=== PATIENT | female | born 1960 | race American Indian/Alaskan Native ===

== ENCOUNTER 2016-08-03 08:43 | Emergency (ER) | payer OTHER ==
[2016-08-03 08:49] VITALS: BMI 35.5
[2016-08-03 08:50] VITALS: TEMP 98.2
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
[2016-08-03 10:48] VITALS: PULSE 56
[2016-08-03 11:00] VITALS: BP 117/72; RESP 18; O2SAT 100
== END 2016-08-03 11:00 | disposition left against medical advice (07) ==
LOC: ED 08:43
DX: S40.012A Contusion of left shoulder, initial encounter (principal); S16.1XXA Strain of muscle, fascia and tendon at neck level, initial encounter; V49.50XA Passenger injured in collision with unspecified motor vehicles in traffic accident, initial encounter; I10 Essential (primary) hypertension
CPT/HCPCS: 70450; 71020; 72100; 72125; 73030; 96372; 99284; J1885

== ENCOUNTER 2016-11-23 13:50 | Emergency (ER) | payer OTHER ==
[2016-11-23 13:56] VITALS: BMI 33.9
[2016-11-23 14:01] VITALS: BP 105/69; PULSE 62; RESP 18; TEMP 98.7; O2SAT 95
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
== END 2016-11-23 14:25 | disposition home or self-care (01) ==
LOC: ED 13:50
DX: H92.09 Otalgia, unspecified ear (principal); Z87.891 Personal history of nicotine dependence

== ENCOUNTER 2016-12-13 18:31 | Emergency (ER) | payer OTHER ==
[2016-12-13 18:41] VITALS: BMI 36.3
[2016-12-13 18:44] VITALS: BP 135/79; PULSE 72; RESP 18; TEMP 98.5; O2SAT 98
[2016-12-13 19:26] LABS: URINE BILIRUBIN NEGATIVE (NEGATIVE); URINE BLOOD NEGATIVE (NEGATIVE); URINE GLUCOSE (UA) NEGATIVE (NEGATIVE); URINE KETONE NEGATIVE (NEGATIVE); URINE LEUKOCYTE ESTERASE SMALL Leu/uL (NEGATIVE); URINE PROTEIN NEGATIVE mg/dL (<30 mg/dL)
[2016-12-13 19:27] LABS: URINE APPEARANCE CLEAR (CLEAR); URINE COLOR YELLOW (YELLOW)
[2016-12-13 19:36] LABS: URINE RBC NEGATIVE /hpf (0-2)
--- NOTE | 2016-12-13 19:55 | ED PDOC ---
Arrival/HPI - General Historian: Patient - General Chief Complaint: Female Genitourinary Time Seen by Provider: 12/13/16 18:34 - History of Present Illness Narrative History of Present Illness (Text): 12/13/16 19:44 This is a 56 year old female with PMHx HTN, overactive bladder, vertigo who presents with complaint of throat and ear pain as well as burning with urination. Patient recently came to the ED on 11/23/16 for throat and ear pain and was discharged on Augmentin BID for 7 days. Patient reports initial improvement, but symptoms have returned starting about 4 or 5 days ago. Patient is complaining of runny nose with post nasal drip and bringing up clear sputum. Patient reports improvement in symptoms with Mucinex. Patient has been experiencing intermittent sharp pain in the RLQ for about 4 or 5 days as well. This is also when she started getting the dysuria. Patient denies flank or suprapubic tenderness. Patient also complaining of chronic dizziness stemming from her long-standing history of vertigo. PMHx: HTN, Vertigo, Overactive Bladder PSHx: x1, tubal ligation Allergies: NKDA Social: Former smoker quit 4 years ago. 20-25 year smoker smoking 1/2 ppd. Occasional alcohol drinker. Denies drug use. PMD: Dr. Nava ([facility]) Past Medical History - Infectious Disease Hx of Infectious Diseases: None - Cardiac Hx Cardiac Disorders: Yes Hx Hypertension: Yes - Pulmonary Hx Respiratory Disorders: No Other/Comment: USEDTO SMOKE 1/2 PPD - Neurological Hx Neurological Disorder: Yes Hx Dizziness: Yes Hx Vertigo: Yes Other/Comment: NUMBNESS TO LEFT ARM AND LEG 3--16 - HEENT Hx HEENT Disorder: No - Renal Hx Renal Disorder: No - Endocrine/Metabolic Hx Endocrine Disorders: No - Hematological/Oncological Hx Blood Disorders: No - Integumentary Hx Dermatological Disorder: No - Musculoskeletal/Rheumatological Hx Musculoskeletal Disorders: No Hx Falls: No - Gastrointestinal Hx Gastrointestinal Disorders: No - Genitourinary/Gynecological Hx Genitourinary Disorders: Yes Other/Comment: overactive bladder - Psychiatric Hx Psychophysiologic Disorder: No Hx Substance Use: No Other/Comment: ETOH SOCIALLY, SMOKES 1/2 PPD - Surgical History Hx Section: Yes (x1) Hx Tubal Ligation: Yes Other/Comment: TUBAL LIGATION,C SECTION X 1 - Anesthesia Hx Anesthesia: Yes Hx Anesthesia Reactions: No Hx Malignant Hyperthermia: No - Suicidal Assessment Feels Threatened In Home Enviroment: No Family/Social History Family/Social History: Unknown Family HX Smoking Status: Former Smoker Hx Alcohol Use: Yes Hx Substance Use: No Allergies/Home Meds Allergies/Adverse Reactions: Allergies No Known Allergies Allergy (Verified 11/23/16 13:56) Home Medications: Home Meds Medication Instructions Recorded Confirmed Meclizine HCl 25 mg PO Q8 12/01/14 12/13/16 Oxybutynin Chloride [Oxybutynin 10 mg PO DAILY 12/01/14 12/13/16 Chloride ER] Clopidogrel [Plavix] 75 mg PO DAILY 10/25/15 12/13/16 Atorvastatin [Lipitor] 10 mg PO DAILY 11/23/16 12/13/16 diltiaZEM [Cardizem] 240 mg PO DAILY 11/23/16 12/13/16 hydroCHLOROthiazide [Hydrodiuril] 1 tab PO DAILY 12/13/16 12/13/16 Review of Systems - Review of Systems Constitutional: Normal Eyes: Normal ENT: Sore Throat, Rhinorrhea, Other (post nasal drip). absent: Hearing Changes Cardiovascular: Normal Gastrointestinal: Abdominal Pain (intermittent sharp pain RLQ) Genitourinary Female: Dysuria, Frequency Musculoskeletal: Normal Skin: Normal Neurological: Dizziness Endocrine: Normal Hemo/Lymphatic: Normal Psychiatric: Normal Physical Exam Temperature: Afebrile Blood Pressure: Normal Pulse: Regular Respiratory Rate: Normal Appearance: Positive for: Well-Appearing Pain Distress: None Mental Status: Positive for: Alert and Oriented X 3 - Systems Exam Head: Present: Atraumatic, Normocephalic Pupils: Present: PERRL Extroacular Muscles: Present: EOMI Conjunctiva: Present: Normal Ears: Present: Other (excess cerumen bilaterally) Mouth: Present: Moist Mucous Membranes Pharnyx: Present: Normal. No: ERYTHEMA, EXUDATE, TONSILS ENLARGED Nose (External): No: Atraumatic Nose (Internal): Present: Normal Inspection Respiratory/Chest: Present: Decreased Breath Sounds (poor inspiratory effort) Cardiovascular: Present: Regular Rate and Rhythm, Normal S1, S2. No: Murmurs Abdomen: Present: Tenderness (RLQ tenderness), Normal Bowel Sounds. No: Distention, Peritoneal Signs, Rebound, Guarding Back: No: CVA Tenderness Upper Extremity: Present: Normal Inspection. No: Edema Lower Extremity: Present: Normal Inspection. No: Edema, CALF TENDERNESS Neurological: Present: GCS=15, CN II-XII Intact, Speech Normal Skin: Present: Warm, Dry, Normal Color Psychiatric: Present: Alert, Oriented x 3 Medical Decision Making ED Course and Treatment: 12/13/16 20:02 UA, urine cultures, throat cultures, Macrobid 100 mg PO dose Plan for discharge on Macrobid 100 mg PO BID. 12/13/16 20:06 12/13/16 20:06 12/13/16 20:10 (Holden Murguia) Patient was seen by resident and then evaluated by me and we came up with plan together. Patient complaining of "clogged ears" "scratchy throat" and clear nasal discharge. Denies fever, chest pain, or shortness of breath. Lungs cta b /l and rapid strep negative. Symptoms consistent with uti. Also complaining of dysuria. Abdomen soft NT/ND and no flank tenderness. Denies vaginal bleeding, discharge, constipation, diarrhea, vomiting, or constipation. UA consistent wiht uti. Will dc on antibiotics. Patient was given detailed return instructions. 12/13/16 20:42 (Christie Foy) - Lab Interpretations Lab Results: Lab Results 12/13/16 18:54: Urine Color Yellow, Urine Appearance Clear, Urine pH 7.0, Ur Specific [place] 1.020, Urine Protein Negative, Urine Glucose (UA) Negative, Urine Ketones Negative, Urine Blood Negative, Urine Nitrate Negative, Urine Bilirubin Negative, Urine Urobilinogen 1.0 H, Ur Leukocyte Esterase Small H, Urine RBC Negative, Urine WBC 10 - 15, Ur Epithelial Cells 1 - 3 12/13/16 18:54: Grp A Beta Strep Ag Negative - Medication Orders Current Medication Orders: Discontinued Medications Ibuprofen (Motrin Tab) 600 mg PO STAT STA Stop: 12/13/16 19:55 Last Admin: 12/13/16 20:22 Dose: 600 mg Nitrofurantoin Macrocrystals (Macrobid) 100 mg PO STAT STA Stop: 12/13/16 20:06 Last Admin: 12/13/16 20:23 Dose: 100 mg Disposition/Present on Arrival - Present on Arrival Any Indicators Present on Arrival: No History of DVT/PE: No History of Uncontrolled Diabetes: No Urinary Catheter: No History of Decub. Ulcer: No History Surgical Site Infection Following: None - Disposition Have Diagnosis and Disposition been Completed?: Yes Disposition Time: 20:00 - Disposition Diagnosis: Upper respiratory infection, Urinary tract infection Disposition: HOME/ ROUTINE Condition: STABLE Discharge Instructions (ExitCare): Urinary Tract Infection in Women (ED), Upper Respiratory Infection (ED) Additional Instructions: Take full course of antibiotics. Return to ED if condition worsens. Follow-up with PMD within 2 days. Prescriptions: Nitrofurantoin Macrocrystals [Macrobid] 100 mg PO BID #10 cap Referrals: Jackson Nava DO [Primary Care Provider] - Follow up with primary Forms: [facility] (Armenian), WORK NOTE
[2016-12-13] MEDS ORDERED: Tmp-Smz 800 mg-160 mg DS Tab PO STA (20:02)
== END 2016-12-13 20:23 | disposition home or self-care (01) ==
LOC: ED 18:31
DX: J06.9 Acute upper respiratory infection, unspecified (principal); N39.0 Urinary tract infection, site not specified; Z87.891 Personal history of nicotine dependence

== ENCOUNTER 2018-04-06 11:37 | Emergency (ER) | payer MEDICAID ==
[2018-04-06 11:59] VITALS: RESP 18
[2018-04-06 12:00] VITALS: BMI 38.2
--- NOTE | 2018-04-06 13:21 | CT ---
Date of service: 04/06/2018 PROCEDURE: CT HEAD WITHOUT CONTRAST. HISTORY: dizziness/paresthesia COMPARISON: 04/21/2017 TECHNIQUE: Axial computed tomography images were obtained through the head/brain without intravenous contrast. Radiation dose: Total exam DLP = 900.4 mGy-cm. This CT exam was performed using one or more of the following dose reduction techniques: Automated exposure control, adjustment of the mA and/or kV according to patient size, and/or use of iterative reconstruction technique. FINDINGS: HEMORRHAGE: No intracranial hemorrhage. BRAIN: No mass effect or edema. No atrophy or chronic microvascular ischemic changes. VENTRICLES: Unremarkable. No hydrocephalus. CALVARIUM: Unremarkable. PARANASAL SINUSES: Unremarkable as visualized. No significant inflammatory changes. MASTOID AIR CELLS: Unremarkable as visualized. No inflammatory changes. OTHER FINDINGS: None. IMPRESSION: No acute intracranial findings
[2018-04-06 13:46] LABS: URINE BILIRUBIN NEGATIVE (NEGATIVE); URINE BLOOD NEGATIVE (NEGATIVE); URINE GLUCOSE (UA) NEGATIVE (NEGATIVE); URINE LEUKOCYTE ESTERASE TRACE Leu/uL (NEGATIVE); URINE PROTEIN NEGATIVE mg/dL (<30 mg/dL); URINE UROBILINOGEN 0.2 E.U./dL (<1 E.U./dL)
[2018-04-06 13:48] LABS: URINE APPEARANCE CLEAR (CLEAR); URINE COLOR YELLOW (YELLOW)
[2018-04-06 13:53] LABS: URINE EPITHELIAL CELLS 0 - 2 /hpf (0-5); URINE RBC NEGATIVE /hpf (0-2)
[2018-04-06] MEDS ORDERED: Sodium Chloride 0.9% 1,000 ML IV STA (13:53)
[2018-04-06 13:57] LABS: BASO # 0.02 K/mm3 (0.0-2.0); BASO % 0.4 % (0.0-3.0); EOS # 0.1 (0.0-0.7); EOS % 2.8 % (1.5-5.0); GRAN # 1.87 (1.4-6.5); GRAN % 39.9 % (50.0-68.0); HEMOGLOBIN 11.7 g/dL (12.0-16.0); LYMPH # 2.4 (1.2-3.4); LYMPH % 50.7 % (22.0-35.0); MEAN CELL VOLUME 85.3 fl (80.0-105.0); MEAN CORPUSCULAR HEMOGLOBIN 27.7 pg (25.0-35.0); MEAN CORPUSCULAR HGB CONC 32.5 g/dl (31.0-37.0); MEAN PLATELET VOLUME 8.5 fl (7.0-11.0); MONO # 0.3 (0.1-0.6); MONO % 6.2 % (1.0-6.0); RBC 4.22 10^6/uL (3.5-6.1); RED CELL DISTRIBUTION WIDTH 14.9 % (11.5-14.5); WHITE BLOOD COUNT 4.7 10^3/uL (4.5-11.0)
[2018-04-06 14:01] LABS: BARBITURATES, UR NEGATIVE (NEGATIVE); BENZODIAZEPINES, UR NEGATIVE (NEGATIVE); OPIATES, UR NEGATIVE (NEGATIVE); PHENCYCLIDINE, UR NEGATIVE (NEGATIVE)
[2018-04-06 14:06] LABS: INR 1.14; PARTIAL THROMBOPLASTIN TIME 29.1 Seconds (25.1-36.5); PROTHROMBIN TIME 13.2 SECONDS (9.4-12.5)
[2018-04-06 14:08] LABS: ALB/GLOB RATIO 1.2 (1.1-1.8); ALBUMIN 4.3 g/dL (3.0-4.8); ALT/SGPT 41 U/L (7-56); AST/SGOT 35 U/L (14-36); BLOOD UREA NITROGEN 11 mg/dL (7-21); CALCIUM 9.5 mg/dL (8.4-10.5); GFR NON-AFRICAN AMERICAN > 60
[2018-04-06 14:15] VITALS: TEMP 97.7
[2018-04-06 14:19] LABS: TROPONIN I < 0.01 ng/mL
[2018-04-06 14:24] LABS: CK-MB 5.3 ng/mL (0.0-3.6)
[2018-04-06] MEDS: Potassium Chloride 20 mEq ER Tab PO STA ×2 (14:26→14:39)
[2018-04-06] MEDS ORDERED: Potassium Chloride 40 mEq/30 ml LIQ UD PO STA (14:49)
--- NOTE | 2018-04-06 15:00 | CARD ---
APPROVED REPORT Date of service: 04/06/2018 EKG Measurement Heart [id number] <Conclusion> Sinus bradycardia Nonspecific T wave abnormality
[2018-04-06 15:08] VITALS: BP 149/74; PULSE 62; O2SAT 100
--- NOTE | 2018-05-05 18:10 | ED PDOC ---
Arrival/HPI - General Chief Complaint: Dizziness/Lightheaded Historian: Patient - History of Present Illness Narrative History of Present Illness (Text): 05/05/18 18:06 57yo female with pmhx of hypertension, hyperlipdemia , Vertigo who present with complaint of dizziness, blurry vision, nausea and vomiting x 2days. She notes history of similar symptoms with her Vertigo, but it usually resolves with Meclizine. States she is in Meclizine at home and has been taking it without relieve. She denies chest pain, SOB, focal weakness, visual changes, ripping/tearing upper back pain, dysarthria, facial drooping, fever, chills, neck pain, any other complaint. Past Medical History - Provider Review Nursing Documentation Reviewed: Yes - Infectious Disease Hx of Infectious Diseases: None - Reproductive Menopause: Yes - Cardiac Hx Cardiac Disorders: Yes Hx Hypertension: Yes - Pulmonary Hx Respiratory Disorders: No - Neurological Hx Neurological Disorder: Yes Hx Dizziness: Yes - HEENT Hx HEENT Disorder: Yes Other/Comment: glasses - Renal Hx Renal Disorder: No - Endocrine/Metabolic Hx Endocrine Disorders: No - Hematological/Oncological Hx Blood Disorders: No - Integumentary Hx Dermatological Disorder: Yes - Musculoskeletal/Rheumatological Hx Musculoskeletal Disorders: No Hx Falls: No - Gastrointestinal Hx Gastrointestinal Disorders: No - Genitourinary/Gynecological Hx Genitourinary Disorders: No - Psychiatric Hx Psychophysiologic Disorder: No Hx Substance Use: No - Surgical History Hx Section: Yes - Anesthesia Hx Anesthesia: Yes Hx Anesthesia Reactions: No Hx Malignant Hyperthermia: No - Suicidal Assessment Feels Threatened In Home Enviroment: No Family/Social History - Physician Review Nursing Documentation Reviewed: Yes Family/Social History: Unknown Family HX Smoking Status: Never Smoked Hx Alcohol Use: Yes Hx Substance Use: No Allergies/Home Meds Allergies/Adverse Reactions: Allergies No Known Allergies Allergy (Verified 04/15/18 00:34) Home Medications: Home Meds Medication Instructions Recorded Confirmed Meclizine HCl 25 mg PO Q8 12/01/14 04/06/18 Clopidogrel [Plavix] 75 mg PO DAILY 10/25/15 04/06/18 Oxybutynin [Ditropan Tab] 10 mg PO DAILY 04/17/16 04/06/18 diltiaZEM [Cardizem] 240 mg PO DAILY 04/17/16 04/06/18 Atorvastatin [Lipitor] 20 mg PO HS 04/21/17 04/06/18 Hydrochlorothiazide [Microzide] 12.5 mg PO DAILY 04/21/17 04/06/18 Review of Systems - Physician Review All systems were reviewed & negative as marked: Yes - Review of Systems Constitutional: Normal Eyes: Normal ENT: Normal Respiratory: Normal Cardiovascular: Normal Gastrointestinal: Nausea, Vomiting Genitourinary Female: Normal Musculoskeletal: Normal Skin: Normal Neurological: Dizziness Endocrine: Normal Hemo/Lymphatic: Normal Psychiatric: Normal Physical Exam Vital Signs Reviewed: Yes Vital Signs Temp Pulse Resp BP Pulse Ox 04/06/18 15:07 62 18 149/74 100 04/06/18 14:14 97.7 F 64 18 119/61 99 04/06/18 11:58 97.8 F 63 18 113/62 99 Temperature: Afebrile Blood Pressure: Normal Pulse: Regular Respiratory Rate: Normal Appearance: Positive for: Well-Appearing, Non-Toxic, Comfortable Pain Distress: None Mental Status: Positive for: Alert and Oriented X 3 Finger Stick Blood Glucose: 101 - Systems Exam Head: Present: Atraumatic, Normocephalic Pupils: Present: PERRL Extroacular Muscles: Present: EOMI Conjunctiva: Present: Normal Mouth: Present: Moist Mucous Membranes Neck: Present: Normal Range of Motion Respiratory/Chest: Present: Clear to Auscultation, Good Air Exchange. No: Respiratory Distress, Accessory Muscle Use Cardiovascular: Present: Regular Rate and Rhythm, Normal S1, S2. No: Murmurs Abdomen: Present: Normal Bowel Sounds. No: Tenderness, Distention, Peritoneal Signs, Rebound, Guarding, McBurney's Point Tender, Rovsing's Sign Present Back: Present: Normal Inspection Upper Extremity: Present: Normal Inspection. No: Cyanosis, Edema Lower Extremity: Present: Normal Inspection. No: Edema Neurological: Present: GCS=15, CN II-XII Intact, Speech Normal, Motor Func Grossly Intact, Normal Sensory Function, Normal Cerebellar Funct, Norm Deep Tendon Reflexes, Memory Normal, Normal 2Pt Descrimination, Other (No focal neurological deficit) Skin: Present: Warm, Dry, Normal Color. No: Rashes Psychiatric: Present: Alert, Oriented x 3, Normal Insight, Normal Concentration Medical Decision Making ED Course and Treatment: 05/05/18 18:14 PT presented to ED for stated history. She was neurologically intact in ED Lab was ordered and reviewed and her potassium was repleted Head CT - No acute derangement Plan was to admit pt for further evaluation. PT was offered admission , but she declined. Case was DW her PMD, Dr. Nava and he states pt can sign out AMA and follow up with his office. The risk of CVA, permanent disability, was DW the pt. She expressed understanding of these risk, but still signed out AMA. she was AAO x3 and mentally capable of making this decision. - Lab Interpretations Microbiology Results: Microbiology Results 04/06/18 15:00 Urine,Clean Catch Urine Culture - Final MULTIPLE SPECIES. SUGGEST REPEAT SPECIMEN. Lab Results: PT 13.2 SECONDS (9.4-12.5) H 04/06/18 13:50 INR 1.14 04/06/18 13:50 APTT 29.1 Seconds (25.1-36.5) 04/06/18 13:50 Troponin I < 0.01 ng/mL 04/06/18 13:50 Total Bilirubin 0.4 mg/dL (0.2-1.3) 04/06/18 13:50 AST 35 U/L (14-36) 04/06/18 13:50 ALT 41 U/L (7-56) 04/06/18 13:50 Alkaline Phosphatase 99 U/L (38-126) 04/06/18 13:50 Total Protein 7.9 g/dL (5.8-8.3) 04/06/18 13:50 Albumin 4.3 g/dL (3.0-4.8) 04/06/18 13:50 Globulin 3.6 gm/dL 04/06/18 13:50 Albumin/Globulin Ratio 1.2 (1.1-1.8) 04/06/18 13:50 Urine Color Yellow (YELLOW) 04/06/18 13:10 Urine Appearance Clear (CLEAR) 04/06/18 13:10 Urine pH 7.0 (4.7-8.0) 04/06/18 13:10 Ur Specific Radnor 1.015 (1.005-1.035) 04/06/18 13:10 Urine Protein Negative mg/dL (<30 mg/dL) 04/06/18 13:10 Urine Glucose (UA) Negative mg/dL (NEGATIVE) 04/06/18 13:10 Urine Ketones Negative mg/dL (NEGATIVE) 04/06/18 13:10 Urine Blood Negative (NEGATIVE) 04/06/18 13:10 Urine Nitrate Negative (NEGATIVE) 04/06/18 13:10 Urine Bilirubin Negative (NEGATIVE) 04/06/18 13:10 Urine Urobilinogen 0.2 E.U./dL (<1 E.U./dL) 04/06/18 13:10 Ur Leukocyte Esterase Trace Lance/uL (NEGATIVE) H 04/06/18 13:10 Urine RBC Negative /hpf (0-2) 04/06/18 13:10 Urine WBC 1 - 3 /hpf (0-6) 04/06/18 13:10 Ur Epithelial Cells 0 - 2 /hpf (0-5) 04/06/18 13:10 - RAD Interpretation Radiology Orders: 04/06/18 12:47 HEAD W/O CONTRAST [CT] Stat - Medication Orders Current Medication Orders: Discontinued Medications Sodium Chloride (Sodium Chloride 0.9%) 1,000 mls @ 999 mls/hr IV .Q1H1M STA Stop: 04/06/18 14:53 Last Admin: 04/06/18 14:26 Dose: 999 mls/hr eMAR Start Stop Document 04/06/18 14:26 GMD (Rec: 04/06/18 14:26 GMD [facility] [id number]) Intravenous Solution Start Date 04/06/18 Start Time 14:26 End Date 04/06/18 End time 15:27 Total Infusion Time 61 Meclizine HCl (Antivert) 25 mg PO STAT STA Stop: 04/06/18 13:54 Last Admin: 04/06/18 14:27 Dose: 25 mg Potassium Chloride (K-Dur 20 Meq Er Tab) 40 meq PO STAT STA Stop: 04/06/18 14:11 Last Admin: 04/06/18 14:39 Dose: Not Given Non-Admin Reason: Patient Refused Potassium Chloride (Potassium Chloride Oral Soln) 40 meq PO STAT STA Stop: 04/06/18 14:50 Last Admin: 04/06/18 14:54 Dose: 40 meq Disposition/Present on Arrival - Present on Arrival Any Indicators Present on Arrival: No History of DVT/PE: No History of Uncontrolled Diabetes: No Urinary Catheter: No History of Decub. Ulcer: No History Surgical Site Infection Following: None - Disposition Have Diagnosis and Disposition been Completed?: Yes Diagnosis: Dizziness, Hypokalemia Disposition: AGAINST MEDICAL ADVICE Disposition Time: 18:00 Condition: FAIR Forms: [employer] (Welsh)
== END 2018-04-06 15:19 | disposition left against medical advice (07) ==
LOC: ED 11:37
DX: R42 Dizziness and giddiness (principal); E87.6 Hypokalemia; I10 Essential (primary) hypertension; E78.5 Hyperlipidemia, unspecified
CPT/HCPCS: 70450; 80053; 80324; 80345; 80346; 80349; 80353; 80358; 80361; 81001; 82550; 82553; 82948; 83615; 83735; 83992; 84484; 85025; 85610; 85730; 87086; 93005; 96360; 99285; J3480; J7030

== ENCOUNTER 2018-04-15 00:30 | Emergency (ER) | payer MEDICAID ==
[2018-04-15] MEDS ORDERED: Sodium Chloride 0.9% 1,000 ML IV STA (00:47)
[2018-04-15] MEDS ORDERED: Morphine 4 mg/ml ISec IVP STA (00:47)
--- NOTE | 2018-04-15 00:56 | ED PDOC ---
Arrival/HPI - General Historian: Patient - History of Present Illness Narrative History of Present Illness (Text): 04/15/18 00:54 57-year-old female with past medical history of hypertension and high cholesterol complains of diffuse constant sharp abdominal pain since 2 pm today, associated with lightheaded, nausea, decreased appetite, and dysuria. Otherwise: (-) vomiting, (-) diarrhea, (-) fever, (-) melena, (-) hematochezia, (-) urinary symptoms, (-) back pain, (-) CP, (-) SOB. Has history of prior abdominal surgery - c section. PMD Nava <Laurel Woodall PA-C - Last Filed: 04/15/18 17:51> <Kyle Cruz - Last Filed: 04/16/18 14:32> - General Chief Complaint: Abdominal Pain Time Seen by Provider: 04/15/18 00:39 Past Medical History - Infectious Disease Hx of Infectious Diseases: None - Cardiac Hx Cardiac Disorders: Yes Hx Hypertension: Yes - Pulmonary Hx Respiratory Disorders: No - Neurological Hx Neurological Disorder: Yes Hx Dizziness: Yes - HEENT Hx HEENT Disorder: Yes Other/Comment: glasses - Renal Hx Renal Disorder: No - Endocrine/Metabolic Hx Endocrine Disorders: No - Hematological/Oncological Hx Blood Disorders: No - Integumentary Hx Dermatological Disorder: Yes - Musculoskeletal/Rheumatological Hx Musculoskeletal Disorders: No Hx Falls: No - Gastrointestinal Hx Gastrointestinal Disorders: No - Genitourinary/Gynecological Hx Genitourinary Disorders: No - Psychiatric Hx Psychophysiologic Disorder: No Hx Substance Use: No - Surgical History Hx Section: Yes - Anesthesia Hx Anesthesia: Yes Hx Anesthesia Reactions: No Hx Malignant Hyperthermia: No - Suicidal Assessment Feels Threatened In Home Enviroment: No <Laurel Woodall PA-C - Last Filed: 04/15/18 17:51> Family/Social History Family/Social History: No Known Family HX Smoking Status: Never Smoked Hx Alcohol Use: Yes Frequency of alcohol use: Socially Hx Substance Use: No <Laurel Woodall PA-C - Last Filed: 04/15/18 17:51> Allergies/Home Meds <Laurel Woodall PA-C - Last Filed: 04/15/18 17:51> <Kyle rCuz - Last Filed: 04/16/18 14:32> Allergies/Adverse Reactions: Allergies No Known Allergies Allergy (Verified 04/15/18 00:34) Home Medications: Home Meds Medication Instructions Recorded Confirmed RX: Meclizine HCl 25 mg PO Q8 12/01/14 04/06/18 Clopidogrel [Plavix] 75 mg PO DAILY 10/25/15 04/06/18 RX: Oxybutynin [Ditropan Tab] 10 mg PO DAILY 04/17/16 04/06/18 RX: diltiaZEM [Cardizem] 240 mg PO DAILY 04/17/16 04/06/18 RX: Atorvastatin [Lipitor] 20 mg PO HS 04/21/17 04/06/18 RX: Hydrochlorothiazide [Microzide] 12.5 mg PO DAILY 04/21/17 04/06/18 Review of Systems - Review of Systems Constitutional: absent: Fatigue, Fevers Respiratory: absent: SOB, Cough Cardiovascular: absent: Chest Pain, Palpitations Gastrointestinal: Abdominal Pain, Nausea. absent: Stool Changes, Diarrhea, Vomiting Genitourinary Female: Dysuria. absent: Frequency, Hematuria Musculoskeletal: absent: Arthralgias, Back Pain, Neck Pain Skin: absent: Rash, Pruritis, Skin Lesions Neurological: Dizziness. absent: Headache <Laurel Woodall PA-C - Last Filed: 04/15/18 17:51> Physical Exam Vital Signs Pulse Resp BP Pulse Ox 04/15/18 00:42 78 18 105/56 L 95 Temperature: Afebrile Blood Pressure: Normal Pulse: Regular Respiratory Rate: Normal Appearance: Positive for: Well-Appearing, Non-Toxic, Comfortable Pain Distress: Mild Mental Status: Positive for: Alert and Oriented X 3 - Systems Exam Head: Present: Atraumatic, Normocephalic Pupils: Present: PERRL Extroacular Muscles: Present: EOMI Conjunctiva: Present: Normal Mouth: Present: Dry Neck: Present: Normal Range of Motion Respiratory/Chest: Present: Clear to Auscultation, Good Air Exchange. No: Respiratory Distress, Accessory Muscle Use Cardiovascular: Present: Regular Rate and Rhythm, Normal S1, S2. No: Murmurs Abdomen: Present: Tenderness (+diffuse abdominal tenderness, greatest in the R mid abdomen). No: Distention, Peritoneal Signs, Rebound, Guarding Back: Present: Normal Inspection Upper Extremity: Present: Normal Inspection. No: Cyanosis, Edema Lower Extremity: Present: Normal Inspection. No: Edema Neurological: Present: GCS=15, CN II-XII Intact, Speech Normal Skin: Present: Warm, Dry, Normal Color. No: Rashes Psychiatric: Present: Alert, Oriented x 3, Normal Insight, Normal Concentration <Laurel Woodall PA-C - Last Filed: 04/15/18 17:51> Vital Signs Pulse Resp BP Pulse Ox 04/15/18 00:42 78 18 105/56 L 95 <Kyle Cruz - Last Filed: 04/16/18 14:32> Medical Decision Making ED Course and Treatment: 04/15/18 00:56 Plan: -- Labs -- IV fluids -- Urinalysis -- EKG -- Morphine / Zofran -- Reassess and disposition -- CT AP w/ IV contrast EKG: NSR at 76 bpm, +T wave inversions in leads II, III, V3-V6 (which is not new compared to prior EKG on 04/06/18), as read by [facility]. - RAD Interpretation Radiology Orders: 04/15/18 00:48 ABD & PELVIS IV CONTRAST ONLY [CT] Stat - Medication Orders Current Medication Orders: Sodium Chloride (Sodium Chloride 0.9%) 1,000 mls @ 1,000 mls/hr IV .Q1H STA Stop: 04/15/18 01:46 Discontinued Medications Morphine Sulfate (Morphine) 4 mg IVP STAT STA Stop: 04/15/18 00:48 Ondansetron HCl (Zofran Inj) 4 mg IVP STAT STA Stop: 04/15/18 00:48 <Laurel Woodall PA-C - Last Filed: 04/15/18 17:51> ED Course and Treatment: 04/15/18 04:05 CT Abdomen and Pelvis with IV contrast CLINICAL HISTORY: RT SIDE ABD PAIN TECHNIQUE: Axial computed tomography images of the abdomen and pelvis with intravenous contrast. 1093.77 mGy-cm CONTRAST: With; OMNIPAQUE 350 , 100ML COMPARISON: None provided. FINDINGS: LUNG BASES: The lung bases appear clear. No pleural effusions are seen. LIVER: Unremarkable. GALLBLADDER AND BILE DUCTS: The gallbladder appears within normal limits. No radioopaque gallstones are seen. No biliary ductal dilatation is evident. PANCREAS: Unremarkable. SPLEEN: Unremarkable. ADRENAL GLANDS: Unremarkable. KIDNEYS, URETERS, AND BLADDER: The kidneys appear within normal limits. There is no hydronephrosis or hydroureter. No urinary calculi are seen. STOMACH AND BOWEL: Unremarkable appearance of the stomach and bowel. No evidence of bowel obstruction. No evidence suggesting enteritis or colitis. APPENDIX: No evidence of acute appendicitis on CT examination. PERITONEUM: No free fluid. No free air. LYMPH NODES: No lymphadenopathy is evident. REPRODUCTIVE: The uterus is enlarged bulky and contains multiple calcified masses consistent with fibroids, largest measures 6 cm. Ovaries are WNL. VASCULATURE: No evidence of abdominal aortic aneurysm. BONES: No aggressive appearing osseous lesion. No acute osseous pathology evident. IMPRESSION: No acute pathology. The uterus is enlarged bulky and contains multiple calcified masses consistent with fibroids, largest measures 6 cm. 04/15/18 04:23 Pending UA Pt requesting additional pain meds for fibroid pain 04/15/18 05:27 UA unremarkable pain improved clear for d/c home w/ f/u and return indications, pt agreeable to plan- will f/u with obgyn and pmd - Lab Interpretations Lab Results: 04/15/18 01:27 04/15/18 01:27 Lab Results 04/15/18 01:27: Sodium 134, Potassium 4.0, Chloride 100, Carbon Dioxide 27, Anion Gap 12, BUN 10, Creatinine 0.7, Est GFR ( Amer) > 60, Est GFR (Non- Af Amer) > 60, Random Glucose 116 H, Calcium 9.6, Magnesium 1.8, Total Bilirubin 0.8, AST 42 H, ALT 28, Alkaline Phosphatase 97, Troponin I < 0.01, Total Protein 7.9, Albumin 4.4, Globulin 3.5, Albumin/Globulin Ratio 1.2, Lipase 22 L 04/15/18 01:27: PT 14.5 H, INR 1.27, APTT 27.3 04/15/18 01:27: WBC 11.9 H D, RBC 4.20, Hgb 11.9 L, Hct 36.0, MCV 85.7, MCH 28.3, MCHC 33.1, RDW 14.8 H, Plt Count 255, MPV 8.8, Gran % 80.4 H, Lymph % (Auto) 15.9 L, [place] % (Auto) 3.6, Eos % (Auto) 0.0 L, Baso % (Auto) 0.1, Gran # 9.56 H, Lymph # (Auto) 1.9, [place] # (Auto) 0.4, Eos # (Auto) 0.0, Baso # (Auto) 0.01 - RAD Interpretation Radiology Orders: 04/15/18 00:48 ABD & PELVIS IV CONTRAST ONLY [CT] Stat - Medication Orders Current Medication Orders: Discontinued Medications Sodium Chloride (Sodium Chloride 0.9%) 1,000 mls @ 1,000 mls/hr IV .Q1H STA Stop: 04/15/18 01:46 Last Admin: 04/15/18 01:30 Dose: 1,000 mls/hr eMAR Start Stop Document 04/15/18 01:30 (Rec: 04/15/18 01:33 [id number] Intravenous Solution Start Date 04/15/18 Start Time 01:30 Morphine Sulfate (Morphine) 4 mg IVP STAT STA Stop: 04/15/18 00:48 Last Admin: 04/15/18 01:35 Dose: 4 mg MAR Pain Assessment Document 04/15/18 01:35 (Rec: 04/15/18 01:35 [id number] Pain Reassessment Is this a pain reassessment? Yes Location Left, Right or Bilateral Bilateral Pain Location Body Site Abdomen Description Description Acute Pain Behavior Rubbing Site IVP Administration Document 04/15/18 01:35 (Rec: 04/15/18 01:35 [id number] Charges for Administration # of IVP Administrations 1 Re-Assess: MAR Pain Assessment Document 04/15/18 02:35 (Rec: 04/15/18 03:03 [id number] Pain Reassessment Is this a pain reassessment? Yes Sleep Is patient sleeping during reassessment? Yes Ondansetron HCl (Zofran Inj) 4 mg IVP STAT STA Stop: 04/15/18 00:48 Last Admin: 04/15/18 01:32 Dose: 4 mg IVP Administration Document 04/15/18 01:32 (Rec: 04/15/18 01:36 [id number] Charges for Administration # of IVP Administrations 1 <Kyle Cruz - Last Filed: 04/16/18 14:32> - PA / PUBLIC TRANSIT SPECIALIST / Resident Statement /DO has reviewed & agrees with the documentation as recorded. <Laurel Woodall PA-C - Last Filed: 04/15/18 17:51> Disposition/Present on Arrival - Present on Arrival Any Indicators Present on Arrival: No History of DVT/PE: No History of Uncontrolled Diabetes: No Urinary Catheter: No History of Decub. Ulcer: No History Surgical Site Infection Following: None - Disposition Have Diagnosis and Disposition been Completed?: Yes <Laurel Woodall PA-C - Last Filed: 04/15/18 17:51> - Disposition Disposition Time: 05:27 <Kyle Cruz - Last Filed: 04/16/18 14:32> - Disposition Diagnosis: Fibroid Disposition: HOME/ ROUTINE Condition: GOOD Discharge Instructions (ExitCare): Uterine Fibroids Additional Instructions: SEE THE OBGYN WE HAVE RECCOMENDED. SEE YOUR PRIMARY CARE DOCTOR WELL. MACIE ALICIA, thank you for letting us take care of you today. Your provider was Kyle Cruz and you were treated for ABD PAIN/FLU LIKE SYMPTOMS. The emergency medical care you received today was directed at your acute symptoms. If you were prescribed any medication, please fill it and take as directed. It may take several days for your symptoms to resolve. Return to the Emergency Department if your symptoms worsen, do not improve, or if you have any other problems. Please contact your doctor or call one of the physicians/clinics you have been referred to that are listed on the Patient Visit Information form that is included in your discharge packet. Bring any paperwork you were given at discharge with you along with any medications you are taking to your follow up visit. Our treatment cannot replace ongoing medical care by a primary care provider outside of the emergency department. Thank you for allowing the [facility] team to be part of your care today. If you had an X-Ray or CT scan: A Radiologist will review the ED reading if any change in treatment is needed we will contact you. If you had a blood, urine, or wound culture: It will take several days for the results, if any change in treatment is needed we will contact you. If you had an STI test: It will take 48 hours for the results. Please call after 1 week if you have not heard back. Prescriptions: Acetaminophen [Tylenol] 325 mg PO Q6H PRN 6 Days #24 capsule PRN Reason: Pain, Moderate (4-7) Referrals: Mikala Owusu MD [Non-Staff] - Follow up with primary Jackson Nava DO [Family Provider] - Follow up with primary [facility] [Outside] - Follow up with primary [facility] [Outside] - Follow up with primary Forms: [employer] ([place])
[2018-04-15 01:02] VITALS: RESP 18; BMI 33.9
[2018-04-15 02:04] LABS: BASO # 0.01 K/mm3 (0.0-2.0); BASO % 0.1 % (0.0-3.0); GRAN # 9.56 (1.4-6.5); GRAN % 80.4 % (50.0-68.0); HEMOGLOBIN 11.9 g/dL (12.0-16.0); LYMPH # 1.9 (1.2-3.4); LYMPH % 15.9 % (22.0-35.0); MEAN CELL VOLUME 85.7 fl (80.0-105.0); MEAN CORPUSCULAR HEMOGLOBIN 28.3 pg (25.0-35.0); MEAN CORPUSCULAR HGB CONC 33.1 g/dl (31.0-37.0); MEAN PLATELET VOLUME 8.8 fl (7.0-11.0); MONO # 0.4 (0.1-0.6); MONO % 3.6 % (1.0-6.0); RBC 4.2 10^6/uL (3.5-6.1); RED CELL DISTRIBUTION WIDTH 14.8 % (11.5-14.5); WHITE BLOOD COUNT 11.9 10^3/uL (4.5-11.0)
[2018-04-15 02:12] LABS: ALB/GLOB RATIO 1.2 (1.1-1.8); ALBUMIN 4.4 g/dL (3.0-4.8); ALT/SGPT 28 U/L (7-56); AST/SGOT 42 U/L (14-36); BLOOD UREA NITROGEN 10 mg/dL (7-21); CALCIUM 9.6 mg/dL (8.4-10.5); GFR NON-AFRICAN AMERICAN > 60; LIPASE 22 U/L (23-300)
[2018-04-15 02:29] LABS: TROPONIN I < 0.01 ng/mL
[2018-04-15] MEDS ORDERED: Iohexol 350 MG/100 ML VIAL ONE (02:34)
[2018-04-15 02:52] LABS: INR 1.27; PARTIAL THROMBOPLASTIN TIME 27.3 Seconds (25.1-36.5); PROTHROMBIN TIME 14.5 SECONDS (9.4-12.5)
[2018-04-15 04:48] LABS: PH,URINE 6.5 (4.7-8.0); URINE BILIRUBIN NEGATIVE (NEGATIVE); URINE BLOOD TRACE-INTACT (NEGATIVE); URINE GLUCOSE (UA) NEGATIVE (NEGATIVE); URINE LEUKOCYTE ESTERASE NEGATIVE Leu/uL (NEGATIVE); URINE PROTEIN NEGATIVE mg/dL (<30 mg/dL); URINE UROBILINOGEN 0.2 E.U./dL (<1 E.U./dL)
[2018-04-15 04:56] LABS: URINE APPEARANCE CLEAR (CLEAR); URINE COLOR YELLOW (YELLOW)
[2018-04-15 05:10] LABS: URINE EPITHELIAL CELLS 0 - 2 /hpf (0-5); URINE WBC 0 - 2 /hpf (0-6)
[2018-04-15 07:18] VITALS: BP 109/57; PULSE 80; TEMP 98; O2SAT 96
--- NOTE | 2018-04-15 12:59 | CT ---
Date of service: 04/15/2018 PROCEDURE: CT Abdomen and Pelvis with contrast HISTORY: R sided abd pain COMPARISON: CTA of the chest, abdomen pelvis dated 10/25/2015 TECHNIQUE: Contrast dose: 100 mL Omnipaque 350 Radiation dose: Total exam DLP = 1093.77 mGy-cm. This CT exam was performed using one or more of the following dose reduction techniques: Automated exposure control, adjustment of the mA and/or kV according to patient size, and/or use of iterative reconstruction technique. FINDINGS: LOWER THORAX: Cardiomegaly. No focal consolidation or pleural effusion. LIVER: Unremarkable. No gross lesion or ductal dilatation. GALLBLADDER AND BILE DUCTS: Unremarkable. PANCREAS: Unremarkable. No gross lesion or ductal dilatation. SPLEEN: Unremarkable. ADRENALS: Unremarkable. No mass. KIDNEYS AND URETERS: Unremarkable. No hydronephrosis. No solid mass. VASCULATURE: Unremarkable. No aortic aneurysm. No aortic atherosclerotic calcification or mural plaque present. BOWEL: Unremarkable. No obstruction. No gross mural thickening. APPENDIX: Appendiceal tip not well assessed due to adjacent structures. PERITONEUM: Unremarkable. No free fluid. No free air. LYMPH NODES: Unremarkable. No enlarged lymph nodes. BLADDER: Unremarkable. REPRODUCTIVE: Mildly dilated, enhancing right fallopian tube. Enlarged uterus with multiple calcified uterine fibroids. BONES: No acute fracture. OTHER FINDINGS: None. IMPRESSION: Mildly dilated, enhancing right fallopian tube raising the possibility of hydrosalpinx with a without salpingitis/pyosalpinx. Pelvic ultrasound can be obtained for further evaluation as clinically warranted. Appendiceal tip is not well assessed due to obscuration. Tip appendicitis cannot be excluded. Additional findings as above. Findings order with the preliminary interpretation provided by [facility]. ER notification submitted electronically.
--- NOTE | 2018-04-15 17:59 | CARD ---
APPROVED REPORT Date of service: 04/15/2018 EKG Measurement Heart [id number] <Conclusion> Normal sinus rhythm Nonspecific T wave abnormality Abnormal ECG
== END 2018-04-15 05:28 | disposition home or self-care (01) ==
LOC: ED 00:30
DX: D25.9 Leiomyoma of uterus, unspecified (principal)
CPT/HCPCS: 74177; 80053; 81001; 83690; 83735; 84484; 85025; 85610; 85730; 87086; 93005; 96374; 96375; 99283; J1885; J2270; J2405; J7030; Q9967

== ENCOUNTER 2018-05-08 06:37 | Outpatient (CLI) | payer MEDICAID | END 2018-05-08 06:38 | disposition home or self-care (01) | LOC: CARDIO 06:37 | DX: H65.91 Unspecified nonsuppurative otitis media, right ear (principal); E78.00 Pure hypercholesterolemia, unspecified; Z79.899 Other long term (current) drug therapy; Z87.891 Personal history of nicotine dependence ==

== ENCOUNTER 2018-07-17 12:32 | Outpatient (CLI) | payer MEDICAID | END 2018-07-17 12:33 | disposition home or self-care (01) | LOC: CARDIO 12:32 ==